=== PATIENT | male | born 1980 | race Caucasian/White ===

== ENCOUNTER 2016-10-31 11:30 | Emergency (ER) | payer SELFPAY ==
[~2016-10-31] VITALS: Ht 177.8 cm; Wt 56.0 kg
[2016-10-31 11:38] VITALS: BP 120/76; PULSE 68; RESP 24; TEMP 98.8; O2SAT 99
[2016-10-31] MEDS ORDERED: ACETAMINOPHEN/HYDROcodone 325 MG/5 MG TAB PO ONE (12:00)
[2016-10-31] MEDS ORDERED: TETANUS/DIPHTHERIA TOXOID ADULT 0.5 ML VIAL IM ONE (12:00)
[2016-10-31] MEDS ORDERED: CLINDAMYCIN INJ 600 MG in SODIUM CHLORIDE 0.9% INJ 100 ML IV ONE (12:00)
[2016-10-31] MEDS ORDERED: KETOROLAC TROMETHAMINE 30 MG/ML (IVP) VIAL IVP ONE (12:00)
[2016-10-31 12:42] LABS: AUTOMATED NEUTROPHIL # 7.9 TH/MM3 (1.8-7.7); BASOPHIL # 0.1 TH/MM3 (0-0.2); BASOPHIL % 0.5 % (0.0-2.0); EOSINOPHIL # 0.2 TH/MM3 (0-0.4); EOSINOPHIL % 1.4 % (0.0-4.0); HEMO FLAGS DIFF FINAL; LYMPH % 14.9 % (9.0-44.0); LYMPHOCYTE # 1.6 TH/MM3 (1.0-4.8); MEAN CELL VOLUME 87.2 FL (80.0-100.0); MEAN CORPUSCULAR HEMOGLOBIN 29.9 PG (27.0-34.0); MEAN CORPUSCULAR HGB CONC 34.3 % (32.0-36.0); MONO % 10.5 % (0.0-8.0); NEUT % 72.7 % (16.0-70.0); PLATELET COUNT 286 TH/MM3 (150-450); RED BLOOD COUNT 4.93 MIL/MM3 (4.50-5.90); RED CELL DISTRIBUTION WIDTH 13.6 % (11.6-17.2); WHITE BLOOD COUNT 10.9 TH/MM3 (4.0-11.0)
[2016-10-31] MEDS ORDERED: BACT800T5 PO (13:06)
[2016-10-31] MEDS ORDERED: DICL75TA PO (13:06)
[2016-10-31] MEDS ORDERED: CEPH-460 PO (13:06)
--- NOTE | 2016-10-31 13:11 | PD ---
HPI Chief Complaint: Bite or Sting Time Seen by Provider: 13:07 Travel History International Travel<30 days: No Contact w/Intl Traveler<30days: No Traveled to known affect area: No History of Present Illness HPI 36-year-old male that presents to the ED for evaluation of swelling and pain to the right leg. Per patient his been going for about 4-5 days. No injuries that he can think of. He does do a lot of work outside. Denies any history of MRSA right be drug abuse. Denies any chest pain or shortness of breath. No fevers chills or sweats. Patient states that he tried to get some pus out and he was successful but he continues to have pain and swelling. Patient is to the right lower leg on the mid tibia-fibula. Patient does not know if something bit him or where he came from. He states that he is unclear of to his last tetanus shot. No other medical issues reported. Per patient the pain is severe 8 out of 10. Hurts to ambulate. Able to do so however. PFSH Past Medical History Medical History: Denies Significant Hx Hepatitis: Yes (HEP C) Past Surgical History Surgical History: No Previous Surgery Social History Alcohol Use: Yes (DAILY 1-2 DRINKS) Tobacco Use: Yes (1 PPD) Substance Use: No (FORMER) Allergies-Medications (Allergen,Severity, Reaction): Coded Allergies: Opiate Agonists (Narcotics) (Verified Adverse Reaction, Unknown, 10/31/16) pt wants listed-doesn't want to recieve Reported Meds & Prescriptions Reported Meds & Active Scripts Active Diclofenac Sodium DR (Diclofenac Sodium) 75 Mg Tabdr 75 Mg PO BID PRN Keflex (Cephalexin) 500 Mg Capsule 500 Mg PO Q8H 10 Days Bactrim DS (Sulfamethoxazole-Trimethoprim) 800-160 Mg Tab 1 Tab PO BID 10 Days Review of Systems Except as stated in HPI: all other systems reviewed are Neg Physical Exam Narrative GENERAL: SKIN: Warm and dry. HEAD: Atraumatic. Normocephalic. EYES: Pupils equal and round. No scleral icterus. No injection or drainage. ENT: No nasal bleeding or discharge. Mucous membranes pink and moist. Tongue is midline. No uvula deviation. NECK: Trachea midline. No JVD. CARDIOVASCULAR: Regular rate and rhythm. No murmurs, S3, S4. RESPIRATORY: No accessory muscle use. Clear to auscultation. Breath sounds equal bilaterally. GASTROINTESTINAL: Abdomen soft, non-tender, nondistended. Hepatic and splenic margins not palpable. MUSCULOSKELETAL: Extremities without clubbing, cyanosis, or edema. No obvious deformities. Full range of motion of the upper and lower extremities bilaterally. 2+ pulses bilaterally. Patient has an area of erythema and swelling on the anterior aspect of the mid tibia. No sign of bony involvement. No obvious purulence noted. Patient does have a yellow scab on top of the main lesion. Tender to touch. No calf Tenderness. Warm to touch. NEUROLOGICAL: Awake and alert. No obvious cranial nerve deficits. Motor grossly within normal limits. Five out of 5 muscle strength in the arms and legs. Normal speech. PSYCHIATRIC: Appropriate mood and affect; insight and judgment normal. Data Data Last Documented VS Vital Signs Date Time Temp Pulse Resp B/P Pulse Ox O2 Delivery O2 Flow Rate FiO2 10/31/16 11:38 98.8 68 24 120/76 99 Room Air Orders Complete Blood Count With Diff (10/31/16 11:58) Iv Access Insert/Monitor (10/31/16 11:58) Acetamin-Hydrocod 325-5 Mg ([place] 5-325 (10/31/16 12:00) Ketorolac Inj (Toradol Inj) (10/31/16 12:00) Clindamycin Inj (Cleocin Inj) (10/31/16 12:00) Tetanus/Diphtheria Tox Adult (Tetanus/Di (10/31/16 12:00) Crutches (10/31/16 11:58) Labs Laboratory Tests Test 10/31/16 12:13 White Blood Count 10.9 TH/MM3 Red Blood Count 4.93 MIL/MM3 Hemoglobin 14.7 GM/DL Hematocrit 43.0 % Mean Corpuscular Volume 87.2 FL Mean Corpuscular Hemoglobin 29.9 PG Mean Corpuscular Hemoglobin 34.3 % Concent Red Cell Distribution Width 13.6 % Platelet Count 286 TH/MM3 Mean Platelet Volume 7.7 FL Neutrophils (%) (Auto) 72.7 % Lymphocytes (%) (Auto) 14.9 % Monocytes (%) (Auto) 10.5 % Eosinophils (%) (Auto) 1.4 % Basophils (%) (Auto) 0.5 % Neutrophils # (Auto) 7.9 TH/MM3 Lymphocytes # (Auto) 1.6 TH/MM3 Monocytes # (Auto) 1.1 TH/MM3 Eosinophils # (Auto) 0.2 TH/MM3 Basophils # (Auto) 0.1 TH/MM3 CBC Comment DIFF FINAL Differential Comment MDM Medical Decision Making Medical Screen Exam Complete: Yes Emergency Medical Condition: Yes Medical Record Reviewed: Yes Interpretation(s) CBC Diagram 10/31/16 12:13 Differential Diagnosis Impetigo versus cellulitis versus MRSA versus early abscess Narrative Course 36-year-old male that presents to the ED for evaluation of swelling to the right lower leg. Patient was properly examined and was found to have signs and symptoms very consistent what appears to be early cellulitis. No sign of abscess. Patient denies any IV drug abuse. At this time I recommend trial of IV antibiotics and CBC. CBC was within normal limits. Patient was told to follow with PCP. Patient was given prescriptions for Bactrim, diclofenac sodium as well as Keflex. See ED if worsening symptoms. Recheck in 48 hours if not better. Follow-up with PCP. Given crutches to help him ambulate. Diagnosis Primary Impression: Cellulitis Qualified Code: L03.115 - Cellulitis of right lower extremity Patient Instructions: Narcotic given in the ED, General Instructions Additional Instructions: For recheck in 48 hours if no improvement at all. Take medications as prescribed. Apply ice or warm compresses. Stay off your foot for the next couple of days. Keep the foot elevated at home. See ED for any worsening symptoms. Follow up with PCP. Med/Other Pt SpecificInfo: Prescription(s) given, Wound Care Scripts Diclofenac Sodium DR 75 Mg Tabdr75 Mg PO BID PRN (PAIN SCALE 1 TO 10) #20 TAB Ref 0 Prov:Rimma Minaya MD 10/31/16 Cephalexin (Keflex)500 Mg [id number] Mg PO Q8H 10 Days Ref 0 Prov:Rimma Minaya MD 10/31/16 Sulfamethoxazole-Trimethoprim (Bactrim DS)800-160 Mg Tab1 Tab PO BID 10 Days Prov:Rimma Minaya MD 10/31/16 Disposition: 01 DISCHARGE HOME Condition: Stable Jasiel Villaseñor Oct 31, 2016 13:11
== END 2016-10-31 14:51 | disposition home or self-care (01) ==
LOC: NEPD 11:30
DX: L03.115 Cellulitis of right lower limb (principal); B19.20 Unspecified viral hepatitis C without hepatic coma; F17.200 Nicotine dependence, unspecified, uncomplicated; Z79.899 Other long term (current) drug therapy; Z23 Encounter for immunization
CPT/HCPCS: 85025; 90471; 90714; 96374; 96375; 99284; E0113; J1885

== ENCOUNTER 2016-11-08 16:27 | Emergency (ER) | payer SELFPAY ==
[~2016-11-08] VITALS: Ht 177.8 cm; Wt 53.0 kg
[~2016-11-08 16:27] MED LIST: BACT800T5 PO; CEPH-460 PO; DICL75TA PO
[2016-11-08 17:05] VITALS: BP 109/62; PULSE 96; RESP 16; TEMP 98.8; O2SAT 97
[2016-11-08 17:08] VITALS: BP 109/62; PULSE 87; RESP 16; O2SAT 98
--- NOTE | 2016-11-08 17:20 | PD ---
HPI Chief Complaint: Alcohol/Drug Intoxication Time Seen by Provider: 17:09 Travel History International Travel<30 days: No Contact w/Intl Traveler<30days: No Traveled to known affect area: No History of Present Illness HPI The patient is a 36-year-old male who presents to the emergency department via EMS after heroin overdose. The patient states he last used heroin approximately 3:40 PM while he was at his sobriety house. The patient has a history of IV drug abuse including cocaine and heroin. The patient last used cocaine one week ago, last used heroin earlier today. The patient was found on the floor, with poor respiratory effort. 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 The patient does complain of depression and anxiety, has intermittent thoughts of suicide, but no actual suicide plan. He denies any homicidal ideation or alcohol use. He denies any hallucinations or delusions. Symptoms are mild to moderate, exacerbated by drug use, there are no current alleviating factors except for Narcan. PFSH Past Medical History Anxiety: Yes Depression: Yes Hepatitis: Yes (HEP C) Influenza Vaccination: No Past Surgical History Surgical History: No Previous Surgery Social History Alcohol Use: Yes (DAILY 1-2 DRINKS) Tobacco Use: Yes (1 PPD) Substance Use: No (HEROIN, COCAINE.) Allergies-Medications (Allergen,Severity, Reaction): Coded Allergies: Opiate Agonists (Narcotics) (Verified Adverse Reaction, Unknown, 11/08/16) pt wants listed-doesn't want to recieve Reported Meds & Prescriptions Reported Meds & Active Scripts Active No Active Prescriptions or Reported Medications Review of Systems Except as stated in HPI: all other systems reviewed are Neg General / Constitutional: No: Fever Cardiovascular: No: Chest Pain or Discomfort Respiratory: Positive: Other (found with poor respiratory effort prior to Narcan administration), No: Shortness of Breath Gastrointestinal: No: Nausea, Vomiting, Abdominal Pain Psychiatric: Positive: Depression, Suicidal Ideations, Substance Abuse, No: Homicidal Ideation Physical Exam Narrative GENERAL: Awake, alert, pleasant 36-year-old male who appears his stated age and is in no acute respiratory distress. SKIN: Focused skin assessment warm/dry. HEAD: Atraumatic. Normocephalic. EYES: Pupils equal and round. Pupils are pinpoint bilaterally. ENT: No nasal bleeding or discharge. Mucous membranes pink and moist. NECK: Trachea midline. No JVD. CARDIOVASCULAR: Regular rate and rhythm. No murmur appreciated. RESPIRATORY: No accessory muscle use. Clear to auscultation. Breath sounds equal bilaterally. GASTROINTESTINAL: Abdomen soft, non-tender, nondistended. No rebound tenderness. MUSCULOSKELETAL: No obvious deformities. No clubbing. No cyanosis. No edema. NEUROLOGICAL: Awake and alert. No obvious cranial nerve deficits. Motor grossly within normal limits. Normal speech. Nonfocal. PSYCHIATRIC: Tearful, appropriate insight and judgment. Data Data Last Documented VS Vital Signs Date Time Temp Pulse Resp B/P Pulse Ox O2 Delivery O2 Flow Rate FiO2 11/08/16 18:17 69 12 110/64 95 Nasal Cannula 2 11/08/16 17:05 98.8 Orders Complete Blood Count With Diff (11/08/16 17:09) Comprehensive Metabolic Panel (11/08/16 17:09) Psych Screen (11/08/16 17:09) Drug Screen, Random Urine (11/08/16 17:09) Alcohol (Ethanol) (11/08/16 17:09) Labs Laboratory Tests Test 11/08/16 11/08/16 17:15 18:17 White Blood Count 13.3 TH/MM3 Red Blood Count 4.51 MIL/MM3 Hemoglobin 13.2 GM/DL Hematocrit 39.6 % Mean Corpuscular Volume 87.7 FL Mean Corpuscular Hemoglobin 29.3 PG Mean Corpuscular Hemoglobin 33.4 % Concent Red Cell Distribution Width 13.4 % Platelet Count 296 TH/MM3 Mean Platelet Volume 7.6 FL Neutrophils (%) (Auto) 84.1 % Lymphocytes (%) (Auto) 8.3 % Monocytes (%) (Auto) 6.4 % Eosinophils (%) (Auto) 0.9 % Basophils (%) (Auto) 0.3 % Neutrophils # (Auto) 11.2 TH/MM3 Lymphocytes # (Auto) 1.1 TH/MM3 Monocytes # (Auto) 0.8 TH/MM3 Eosinophils # (Auto) 0.1 TH/MM3 Basophils # (Auto) 0.0 TH/MM3 CBC Comment DIFF FINAL Differential Comment Sodium Level 139 MEQ/L Potassium Level 4.0 MEQ/L Chloride Level 106 MEQ/L Carbon Dioxide Level 26.4 MEQ/L Anion Gap 7 MEQ/L Blood Urea Nitrogen 10 MG/DL Creatinine 0.76 MG/DL Estimat Glomerular Filtration 116 ML/MIN Rate Random Glucose 139 MG/DL Calcium Level 8.4 MG/DL Total Bilirubin 0.3 MG/DL Aspartate Amino Transf 13 U/L (AST/SGOT) Alanine Aminotransferase 11 U/L (ALT/SGPT) Alkaline Phosphatase 48 U/L Total Protein 6.9 GM/DL Albumin 3.2 GM/DL Ethyl Alcohol Level LESS THAN 3 MG/DL Urine Opiates Screen POS Urine Barbiturates Screen NEG Urine Amphetamines Screen NEG Urine Benzodiazepines Screen NEG Urine Cocaine Screen NEG Urine Cannabinoids Screen NEG MDM Medical Decision Making Medical Screen Exam Complete: Yes Emergency Medical Condition: Yes Medical Record Reviewed: Yes Interpretation(s) Laboratory Tests Test 11/08/16 11/08/16 17:15 18:17 White Blood Count 13.3 TH/MM3 Red Blood Count 4.51 MIL/MM3 Hemoglobin 13.2 GM/DL Hematocrit 39.6 % Mean Corpuscular Volume 87.7 FL Mean Corpuscular Hemoglobin 29.3 PG Mean Corpuscular Hemoglobin 33.4 % Concent Red Cell Distribution Width 13.4 % Platelet Count 296 TH/MM3 Mean Platelet Volume 7.6 FL Neutrophils (%) (Auto) 84.1 % Lymphocytes (%) (Auto) 8.3 % Monocytes (%) (Auto) 6.4 % Eosinophils (%) (Auto) 0.9 % Basophils (%) (Auto) 0.3 % Neutrophils # (Auto) 11.2 TH/MM3 Lymphocytes # (Auto) 1.1 TH/MM3 Monocytes # (Auto) 0.8 TH/MM3 Eosinophils # (Auto) 0.1 TH/MM3 Basophils # (Auto) 0.0 TH/MM3 CBC Comment DIFF FINAL Differential Comment Sodium Level 139 MEQ/L Potassium Level 4.0 MEQ/L Chloride Level 106 MEQ/L Carbon Dioxide Level 26.4 MEQ/L Anion Gap 7 MEQ/L Blood Urea Nitrogen 10 MG/DL Creatinine 0.76 MG/DL Estimat Glomerular Filtration 116 ML/MIN Rate Random Glucose 139 MG/DL Calcium Level 8.4 MG/DL Total Bilirubin 0.3 MG/DL Aspartate Amino Transf 13 U/L (AST/SGOT) Alanine Aminotransferase 11 U/L (ALT/SGPT) Alkaline Phosphatase 48 U/L Total Protein 6.9 GM/DL Albumin 3.2 GM/DL Ethyl Alcohol Level LESS THAN 3 MG/DL Urine Opiates Screen POS Urine Barbiturates Screen NEG Urine Amphetamines Screen NEG Urine Benzodiazepines Screen NEG Urine Cocaine Screen NEG Urine Cannabinoids Screen NEG Differential Diagnosis Differential diagnosis includes heroin overdose, polysubstance abuse, substance- induced mood disorder, depressive disorder NOS, major depression, anxiety, bipolar affective disorder. Narrative Course IV was established, labs are drawn and sent, and the patient was placed on cardiac telemetry monitoring and continuous pulse oximetry monitoring. The patient was administered Narcan 0.4 mg intravenously prior to arrival, the patient will be monitored in the emergency department for 4 hours to evaluate for rebound effects of heroin. Psychiatric evaluation was ordered. Diagnosis Primary Impression: IV drug abuse Additional Impression: Substance induced mood disorder Scripts No Active Prescriptions or Reported Meds Condition: Stable Willie Carrillo MD Nov 08, 2016 17:20
[2016-11-08 17:54] VITALS: BP 99/58; PULSE 86; RESP 16; O2SAT 95
[2016-11-08 17:54] LABS: AUTOMATED NEUTROPHIL # 11.2 TH/MM3 (1.8-7.7); BASOPHIL % 0.3 % (0.0-2.0); EOSINOPHIL # 0.1 TH/MM3 (0-0.4); EOSINOPHIL % 0.9 % (0.0-4.0); HEMATOCRIT 39.6 % (39.0-51.0); HEMO FLAGS DIFF FINAL; LYMPH % 8.3 % (9.0-44.0); LYMPHOCYTE # 1.1 TH/MM3 (1.0-4.8); MEAN CELL VOLUME 87.7 FL (80.0-100.0); MEAN CORPUSCULAR HEMOGLOBIN 29.3 PG (27.0-34.0); MEAN CORPUSCULAR HGB CONC 33.4 % (32.0-36.0); MONO % 6.4 % (0.0-8.0); NEUT % 84.1 % (16.0-70.0); PLATELET COUNT 296 TH/MM3 (150-450); RED BLOOD COUNT 4.51 MIL/MM3 (4.50-5.90); RED CELL DISTRIBUTION WIDTH 13.4 % (11.6-17.2); WHITE BLOOD COUNT 13.3 TH/MM3 (4.0-11.0)
[2016-11-08 18:17] VITALS: BP 110/64; PULSE 69; RESP 12; O2SAT 95
[2016-11-08 18:18] LABS: ANION GAP 7 MEQ/L (5-15); AST (GOT) 13 U/L (15-37); BICARBONATE 26.4 MEQ/L (21.0-32.0); BLOOD UREA NITROGEN 10 MG/DL (7-18); CHLORIDE 106 MEQ/L (98-107); GLOMERULAR FILTRATION RATE 116 ML/MIN (>89); SODIUM (NA) 139 MEQ/L (136-145)
[2016-11-08 18:21] LABS: ALKALINE PHOSPHATASE 48 U/L (45-117); ALT (GPT) 11 U/L (12-78); TOTAL BILIRUBIN ADULT 0.3 MG/DL (0.2-1.0)
[2016-11-08 19:01] LABS: AMPHETAMINE, URINE NEG (NEG); BARBITURATES, URINE NEG (NEG); COCAINE, URINE NEG (NEG)
[2016-11-08] MEDS ORDERED: NICOTINE 21 MG/24 HR PATCH T-DERMAL ONE (23:15)
[2016-11-09 02:25] VITALS: BP 105/55; PULSE 54; RESP 18
[2016-11-09 06:07] VITALS: BP 104/56; PULSE 54; RESP 16
[2016-11-09 12:45] VITALS: BP 104/56; PULSE 54; RESP 16
== END 2016-11-09 13:37 | disposition home or self-care (01) ==
LOC: NEPD 16:27 → NEPJ 11-09 13:37
DX: F19.14 Other psychoactive substance abuse with psychoactive substance-induced mood disorder (principal); F17.200 Nicotine dependence, unspecified, uncomplicated; Z86.19 Personal history of other infectious and parasitic diseases; Z86.59 Personal history of other mental and behavioral disorders
CPT/HCPCS: 80053; 80307; 85025; 99284

== ENCOUNTER 2017-06-21 08:37 | Emergency (ER) | payer SELFPAY ==
[~2017-06-21] VITALS: Ht 172.7 cm; Wt 65.0 kg
[2017-06-21 08:49] VITALS: BP 140/70; PULSE 77; RESP 18; TEMP 98.3; O2SAT 97
[2017-06-21] MEDS ORDERED: AZIT250T3 PO (09:34)
--- NOTE | 2017-06-21 09:34 | PD ---
HPI Chief Complaint: Respiratory Symptoms Time Seen by Provider: 09:26 Travel History International Travel<30 days: No Contact w/Intl Traveler<30days: No Traveled to known affect area: No History of Present Illness HPI 36-year-old man presents emerged department of cough congestion sore throat scratchy throat ongoing for the past couple months. It has been worse recently. No fevers. He had productive bloody sputum over the past week or so which is why he came in today. Some shortness of breath. Symptoms are worse especially in the morning when he first wakes up, then in the evening. He has a history of heavy tobacco use but quit about 3 months ago. Asthma as a child but no breathing difficulties more recently as an adult. Denies any other complaints. No weight loss. No night sweats. History Past Medical History Narrative Medical Hepatitis C History of tobacco use Tetanus Vaccination: < 5 Years Influenza Vaccination: No Past Surgical History Surgical History: No Previous Surgery Social History Alcohol Use: No Tobacco Use: Yes (Quit about 3 months ago) Allergies-Medications (Allergen,Severity, Reaction): Coded Allergies: Opioids - Morphine Analogues (Unverified Adverse Reaction, Unknown, ) pt wants listed-doesn't want to recieve Opioids-Meperidine and Related (Unverified Adverse Reaction, Unknown, 06/21) pt wants listed-doesn't want to recieve Opioids-Methadone and Related (Unverified Adverse Reaction, Unknown, ) pt wants listed-doesn't want to recieve Reported Meds & Prescriptions Reported Meds & Active Scripts Active Azithromycin 250 Mg Tab 250 Mg PO DIRECTED Take 2 tabs (500 mg) on day 1 then 1 tab daily x 4 days. Review of Systems Except as stated in HPI: all other systems reviewed are Neg Physical Exam Narrative GENERAL: Well-appearing adult man, no acute distress. SKIN: Focused skin assessment warm/dry. HEAD: Atraumatic. Normocephalic. EYES: Pupils equal and round. No scleral icterus. No injection or drainage. ENT: No nasal bleeding or discharge. Mucous membranes pink and moist. TMs unremarkable, throat unremarkable. NECK: Trachea midline. No JVD. No adenopathy. CARDIOVASCULAR: Regular rate and rhythm. No murmur appreciated. RESPIRATORY: No accessory muscle use. Clear to auscultation. Breath sounds equal bilaterally. No wheezing. GASTROINTESTINAL: Abdomen soft, non-tender, nondistended. Hepatic and splenic margins not palpable. MUSCULOSKELETAL: No obvious deformities. No clubbing. No cyanosis. No edema. NEUROLOGICAL: Awake and alert. No obvious cranial nerve deficits. Motor grossly within normal limits. Normal speech. PSYCHIATRIC: Appropriate mood and affect; insight and judgment normal. Data Data Last Documented VS Vital Signs Date Time Temp Pulse Resp B/P (MAP) Pulse Ox O2 Delivery O2 Flow Rate FiO2 06/21/17 08:49 98.3 77 18 140/70 (93) 97 Orders Orders Chest, Pa & Lat (06/21/17 ) [facility] Medical Decision Making Medical Screen Exam Complete: Yes Emergency Medical Condition: Yes Interpretation(s) Review of chest x-ray: No definite infiltrates. Differential Diagnosis Acute bronchitis, pneumonia, mass, other Narrative Course Medical decision making 36-year-old male with productive cough for couple months, history of heavy tobacco use, denies any illicit drug use, looks well. No wheezing on exam or evidence of obstructive lung disease. Will try antibiotics for bronchitis, check x-ray rule out pneumonia or mass, outpatient follow-up. Diagnosis Primary Impression: Bronchitis Patient Instructions: General Instructions Additional Instructions: Take antibiotics as prescribed. Drink plenty fluids stay well-hydrated. Follow with her primary doctor in the next 2-4 days. Med/Other Pt SpecificInfo: Prescription(s) given Scripts Azithromycin (Azithromycin) 250 Mg Tab 250 MG PO DIRECTED for Infection, #6 TAB 0 Refills Take 2 tabs (500 mg) on day 1 then 1 tab daily x 4 days. Prov: Christiano Hebert MD 06/21/17 Disposition: 01 DISCHARGE HOME Condition: Stable Christiano Hebert MD Jun 21, 2017 09:34
--- NOTE | 2017-06-21 09:50 | RADRPT ---
EXAM DATE/TIME: 06/21/2017 09:37 [facility] COMPARISON: CHEST PA & LAT, September 18, 2015, 9:39. INDICATIONS : Cough with bloody sputum. MEDICAL HISTORY : None. SURGICAL HISTORY : None. ENCOUNTER: Initial ACUITY: 1 month PAIN SCORE: 4/10 LOCATION: Bilateral chest FINDINGS: PA and lateral views of the chest demonstrate the lungs to be symmetrically aerated without evidence of mass, infiltrate or effusion. The cardiomediastinal contours are unremarkable. Osseous structure s are intact. CONCLUSION: No acute disease. Jose Alberto Burnett MD on June 21, 2017 at 9:48 Board Certified Radiologist. This report was verified electronically.
== END 2017-06-21 10:05 | disposition home or self-care (01) ==
LOC: NEPD 08:37
DX: J40 Bronchitis, not specified as acute or chronic (principal); B19.20 Unspecified viral hepatitis C without hepatic coma; Z87.891 Personal history of nicotine dependence; Z88.8 Allergy status to other drugs, medicaments and biological substances
CPT/HCPCS: 71046; 99283